=== PATIENT | female | born 1950 | race Caucasian/White ===

== ENCOUNTER 2023-04-26 17:43 | Emergency (ER) | payer OTHER, MEDICARE ==
[2023-04-26 18:16] VITALS: BP 160/68; PULSE 83; RESP 16; TEMP 98.1; BMI 17.6
[2023-04-26 18:31] LABS: HEMATOCRIT 38.3 % (32.4-45.2); HEMOGLOBIN 13.1 G/dL (10.7-15.3); MCHC 34.1 g/dl (32.0-36.0); MEAN CELL VOLUME 93.9 fl (80-96); MEAN PLT VOLUME 7.7 fl (7.5-11.1); PLATELET COUNT 244.3 10^3/uL (134-434); RBC 4.08 10^6/uL (3.60-5.2); RDW 13.2 % (11.6-15.6); WHITE BLOOD COUNT 5.6 10^3/uL (4.0-10.8)
[2023-04-26 18:53] LABS: ALBUMIN 4.4 g/dl (3.4-5.0); BILIRUBIN,TOTAL 0.4 mg/dl (0.2-1); CALCIUM 9.1 mg/dl (8.5-10.1); CREATININE 0.7 mg/dl (0.6-1.3); MAGNESIUM 2.1 mg/dL (1.8-2.4); POTASSIUM 3.9 mmol/L (3.5-5.1); TOT PROT 6.7 g/dl (6.4-8.2)
[2023-04-26 19:31] LABS: PLATELET ESTIMATE ADEQUATE
== END 2023-04-26 19:10 | disposition home or self-care (01) ==
LOC: FER 17:43
DX: R35.89 Other polyuria (principal); R19.7 Diarrhea, unspecified; R41.82 Altered mental status, unspecified
CPT/HCPCS: 36415; 80053; 81003; 83735; 85027; 87086; 99283-25